=== PATIENT | female | born 1990 | race Caucasian/White ===

== ENCOUNTER → 2025-07-26 09:55 | Outpatient (REF) | payer OTHER, SELFPAY | LOC: RAD 09:55 | PROVIDERS: ATTENDING PHYSICIAN Student in an Organized Health Care Education/Training Program | DX: M79.641 Pain in right hand (principal); M05.9 Rheumatoid arthritis with rheumatoid factor, unspecified; M79.642 Pain in left hand | CPT/HCPCS: 76882 ==